=== PATIENT | male | born 1985 | race Caucasian/White ===

== ENCOUNTER 2016-10-06 03:02 | Emergency (ER) | payer OTHER ==
[~2016-10-06] VITALS: Ht 154.9 cm; Wt 74.8 kg
[2016-10-06 03:05] VITALS: BP_SYST 136
[2016-10-06 03:20] VITALS: BP_SYST 136
== END 2016-10-06 03:20 ==
LOC: SED 03:02
DX: Z02.89 Encounter for other administrative examinations (principal)
CPT/HCPCS: 99283